=== PATIENT | female | born 1975 | race Two or more races ===

== ENCOUNTER 2019-09-15 13:05 | Inpatient (IN) | payer OTHER ==
[2019-09-15] MEDS ORDERED: ONDANSETRON 4 MG/2 ML VIAL IVPUSH PRN (14:51)
[2019-09-15] MEDS ORDERED: morphine SULFATE/PF 0.5 MG/ML (2cc Syringe - QUVA) ONE (14:56)
[2019-09-15] MEDS ORDERED: PHENYLEPHRINE HCL 10 MG/1 ML SINGLE DOSE VIAL ONE (14:56)
[2019-09-15] MEDS ORDERED: CITRIC ACID/SODIUM CITRATE 30 ML UNIT-DOSE CUP PO ONE (15:03)
--- NOTE | 2019-09-15 15:03 | HP ---
Past Medical History - Admission Chief Complaint: breech for c s History Source: Patient Limitations to Obtaining History: No Limitations - Past Medical History BRANCH ACCOUNT EXECUTIVE: No: Alzheimer's, CVA, Dementia, Migraine, Multiple Sclerosis, Peripheral Neuropathy, Parkinson's, Seizure, Syncope, TIA, Vertigo, Other Cardiovascular: No: AFIB, Aneurysm, Aortic Insufficiency, Aortic Stenosis, CAD, CHF, Deep Vein Thrombosis, HTN, Hyperlipdemia, HI, Mitral Insufficiency, Mitral Stenosis, Murmur, Pulmonary Hypertension, Other Pulmonary: No: Asthma, Bronchitis, Cancer, COPD, O2 Dependent, Pneumonia, Previously Intubated, Pulmonary Embolus, Pulmonary Fibrosis, Sleep Apnea, Other Gastrointestinal: No: Ascites, Cancer, Constipation, Crohn's Disease, Diverticulitis, Diverticulosis, Esophageal Varices, Gastritis, GERD, GI Bleed, Hemorrhoids, Hiatal Hernia, Inflamatory Bowel Disease, Irritable Bowel Disease, Pancreatitis, Peptic Ulcer Disease, Ulcerative Colitis, Other Hepatobiliary: No: Cirrhosis, Cholelithiasis, Cholecystitis, Choledocholithiasis, Hepatitis A, Hepatitis B, Hepatitis C, Other Renal/: No: Renal Failure, Renal Inusuff, BPH, Cancer, Hematuria, Hemodialysis, Neurogenic Bladder, Renal Calculi, UTI, Other Reproductive: No: Ectopic , Endometriosis, Fibroids, PID, Polycystic Ovary Syndrome, Postmenopausal, Other ...Para: 0 ... Weeks Gestation by Dates: 40 ...EDC by Dates: 09/15/19 Heme/Onc: No: Anemia, B12 Deficiency, Bleeding Disorder, Cancer, Current Chemotherapy, Current Radiation Therapy, Hemochromatosis, Hypercoaguable State, Myeloproliferative Synd, Sickle Cell Disease, Sickle Cell Trait, Thrombocytopenia, Other Infectious Disease: No: AIDS, C-Diff, Herpes Zoster, HIV, MRSA, STD's, Tuberculosis, VREF, Other Psych: No: Addictions, Anxiety, Bipolar, Depression, Panic, Psychosis, Schizophrenia, Other Musculoskeletal: No: Bursitis, Chronic low back pain, Hemiparesis, Hemiplegia, O steoarthritis, Paraplegia, Other Rheumatology: No: Fibromyalgia, Gout, Lupus, Rheumatoid Arthritis, Sarcoidosis, Vasculitis, Other ENT: No: Allergic Rhinitis, Sinusitis, Other Endocrine: No: [place]ose's Disease, Palo's Disease, Diabetes Insipidus, Diabetes Mellitus, Hyperparathyroidism, Hyperthyroidism, Hypothyroidism, Ost eopenia, SIADH, Other Dermatology: No: Basal Cell, Cellulitis, Eczema, Melanoma, Psoriasis, Squamous Cell, Other - Past Surgical History Past Surgical History: No: None, AAA Repair, AICD, Amputation, Appendectomy, Arthrosocopy, AV Fistula/Graft, Bariatric Surgery, Breast Biopsy, Bypass, CABG, Carotid Endarterectomy, Cataract Removal, Cholecystectomy, Colectomy, Colonoscopy, Colostomy, Craniotomy, , Cystectomy, Hernia Repair, Hysterectomy, Ileal Conduit, Ileosotomy, Joint Replacement, Kidney Transplant, Laminectomy, Liver Transplant, Mastectomy, Nephrectomy, Oopherectomy, Orchiectomy, Permanent Pacemaker, Prostatectomy, Splenectomy, Stent, Thoracotomy, TURP, Tonsillectomy, Tubal Ligation, Upper Endoscopy, Valve Replace ment, Vasectomy, Vein Stripping/Ligation Hx Myomectomy: No Hx Transabdominal Cerclage: No - Advance Directives Advance Directives: Yes: Living Will - Smoking History Smoking history: Current every day smoker Have you smoked in the past 12 months: No - Alcohol/Substance Use Hx Alcohol Use: No History of Substance Use: reports: None - Social History Usual Living Arrangement: Yes: With Significant Other Do you think of yourself as: Straight/Heterosexual ADL: Independent History of Recent Travel: No Home Medications - Allergies Allergies/Adverse Reactions: Allergies Allergy/AdvReac Type Severity Reaction Status Date / Time ciprofloxacin [From Cipro] Allergy Itching Verified 09/12/19 07:59 pineapple Allergy Itching Verified 09/12/19 07:59 SEAFOOD Allergy Itching Uncoded 09/12/19 07:59 - Home Medications Home Medications: Ambulatory Orders Tablet 1 tab PO DAILY 09/12/19 Family Medical History Family History: Denies Review of Systems - Review of Systems Constitutional: reports: No Symptoms Eyes: reports: No Symptoms HENT: reports: No Symptoms Neck: reports: No Symptoms Cardiovascular: reports: No Symptoms Respiratory: reports: No Symptoms Gastrointestinal: reports: No Symptoms Genitourinary: reports: No Symptoms Breasts: reports: No Symptoms Reported Musculoskeletal: reports: No Symptoms Integumentary: reports: No Symptoms Neurological: reports: No Symptoms Endocrine: reports: No Symptoms Hematology/Lymphatic: reports: No Symptoms Psychiatric: reports: No Symptoms Physical Exam - Maternity Constitutional: Yes: Well Nourished, No Distress, Calm Eyes: Yes: WNL, Conjunctiva Clear, EOM Intact HENT: Yes: WNL, Atraumatic, Normocephalic Neck: Yes: WNL, Supple, Trachea Midline Cardiovascular: Yes: WNL, Regular Rate and Rhythm Breast(s): Yes: WNL - Abdominal Exam/OB Number of Fetuses: Single Presentation: Breech Contractions: Yes Regularity: Irregular Intensity: Mild/Mod Monitor Mode: External Heart Rate Location: [facility] Category: I Accelerations: Uniform Decelerations: None - Vaginal Exam/OB Vaginal Bleeding: No Speculum Exam: No Amniotic Membrane Status: Intact Station: -2 - Physical Exam Musculoskeletal: Yes: WNL Extremities: Yes: WNL Edema: Yes Edema: LUE: 1+, RUE: 1+, LLE: 1+, RLE: 1+ Integumentary: Yes: WNL Deep Tendon Reflex Grade: Normal +2 ...Motor Strength: WNL Psychiatric: Yes: WNL, Alert, Oriented Hemorrhage Risk Assessment - Risk Factors Medium Risk Factors: Yes: None High Risk Factors: Yes: None Risk Score: 1 Risk Level: Medium Risk Assessment/Plan hermann merritt maguire
[2019-09-15] MEDS ORDERED: ePHEDrine SULFATE 50 MG/1 ML AMPULE ONE (15:25)
[2019-09-15] MEDS ORDERED: MIDAZOLAM HCL 2 MG/2 ML SINGLE DOSE VIAL ONE (15:38)
[2019-09-15] MEDS: OXYTOCIN 20 UNITS in 0.9% NS 20 UNIT/1,000 ML INFUS.BAG IV SCH (16:05)
[2019-09-15] MEDS ORDERED: OXYTOCIN 20 UNITS in 0.9% NS 20 UNIT/1,000 ML INFUS.BAG IV ONE (16:09)
[2019-09-15] MEDS ORDERED: LABETALOL HCL 5 MG/1 ML (100MG/20 ML VIAL) IVPUSH ONE ×2 (16:21→19:00)
[2019-09-15] MEDS ORDERED: oxyCODONE HCL 5 MG TABLET PO PRN ×2 (16:22)
[2019-09-15] MEDS ORDERED: IBUPROFEN 800 MG/8 ML IJ IVPB PRN (16:22)
[2019-09-15] MEDS ORDERED: SENNOSIDES/DOCUSATE COMBO (SENNA PLUS) TABLET (UD) PO PRN (16:22)
[2019-09-15] MEDS ORDERED: ACETAMINOPHEN 325 MG TABLET (FP) PO PRN (16:22)
[2019-09-15] MEDS ORDERED: METHYLERGONOVINE MALEATE 0.2 MG/1 ML AMP IM PRN (16:22)
[2019-09-15] MEDS ORDERED: IBUPROFEN 600 MG TABLET (FP) PO PRN (16:22)
--- NOTE | 2019-09-15 16:37 | OP ---
Operative Note - Note: Operative Date: 09/15/19 Pre-Operative Diagnosis: breech, borderline htn Operation: primary lt c s Findings: incomlptet single footling breech Post-Operative Diagnosis: Same as Pre-op Surgeon: Walter Lindsay Staff Respiratory Therapist: Per Bonner Anesthesiologist/RD PROJECT MANAGER: Jose Liao Anesthesia: Spinal Estimated Blood Loss (mls): 800 (multiple fibroids, single footling, turning into juarez breech for delivery ) Operative Report Dictated: Yes
[2019-09-15] MEDS: NIFEdipine E.R. 30 MG TABLET PO SCH (16:50)
[2019-09-15 17:15] VITALS: BMI 27.3
[2019-09-15] MEDS ORDERED: LABETALOL HCL 5 MG/1 ML (100MG/20 ML VIAL) ONE (19:05)
--- NOTE | 2019-09-15 20:22 | OP ---
DATE OF OPERATION: 09/15/2019 PREOPERATIVE DIAGNOSIS: Breech presentation, borderline high blood pressure, and advanced maternal age, and post dates. PROCEDURE: Primary low transverse section. SURGEON: Walter Lindsay MD. WASTE SALVAGER: BARBARA Ngo. POSTOPERATIVE DIAGNOSIS: Incomplete single footling breech and the fibroid uterus. ANESTHESIOLOGIST: Jose Liao MD. ANESTHESIA: Spinal INDICATION: This is a 44-year-old female patient 40 weeks and 1 day , borderline high blood pressure, and also borderline gestational diabetic, and the breech presentation since about 32 weeks, and the patient advised to have a baby earlier, however patient declined, patient wanted to wait until her due date, and the patient also finally came in 2-3 days ago was scheduled for , however patient did not do a Coronavirus test, and the case got cancelled, so patient finally had case pushed down to today to be done, so patient was taken to the OR. Patient had a borderline diabetic, borderline high blood pressure, and so patient strongly with advanced maternal age of [age] years old advised to be a earlier, but patient declined. So patient was finally agreed. DESCRIPTION OF PROCEDURE: Patient was taken to the OR and placed on operating table in supine position after spinal anesthesia was obtained. The patient's abdomen and pelvis were prepped and draped in the usual sterile manner. Pfannenstiel incision was made. The incision was made through skin, subcutaneous tissue, until the fascia was nicked in the midline. The fascia was extended bilaterally. Intraperitoneal cavity was entered, no bladder flap was now created. Low transverse section of uterus was entered, baby was single footling breech, and by pushing the leg inside the cavity, then we delivered baby, tried to get the double footling breech to be delivered, but the other leg would not come out, so I turned the baby to juarez breech presentation and delivered baby from juarez breech presentation, and the baby was handed over to the helper/driver after umbilical cord was doubly clamped and cut. Placenta was removed. Uterus was closed in single layer. Baby was handed over to helper/driver after umbilical cord clamped and cut. Placenta was removed. Uterus was closed in a single layer. First layer interlocking Vicryl suture, good hemostasis, and both gutters clean. Both ovaries, fallopian tubes, uterus were within normal limits, no complications. Patient tolerated procedure well draining clear urine, and patient has multiple fibroid uterus, largest one is about intramural 5 x 4 cm in the left lower segment area posterior from , and other than that no complications, and the patient tolerated procedure well, draining clear urine. Blood loss was about 100 mL. Peritoneum was closed. Fascia was closed. Skin was closed. Transferred to recovery room in stable condition. MD SONIA WHEELER/[id number]
[2019-09-15] MEDS: LABETALOL HCL 200 MG TABLET (FP) PO SCH (21:06)
[2019-09-16] MEDS: NIFEdipine E.R. 30 MG TABLET PO SCH (09:35)
[2019-09-16] MEDS: LABETALOL HCL 200 MG TABLET (FP) PO SCH ×2 (09:36→21:30)
[2019-09-16] MEDS ORDERED: DIPHTH,PERTUSS(ACELL),TET 0.5 ML DISP.SYRIN IM ONE (10:00)
[2019-09-16] MEDS ORDERED: NIFEdipine E.R. 30 MG TABLET PO SCH (10:00)
[2019-09-16 13:51] LABS: BASO % 0.1 % (0-2.0); EOS % 0.1 % (0-4.5); HEMATOCRIT 29.1 % (32.4-45.2); HEMOGLOBIN 9.4 GM/dL (10.7-15.3); LYMPH % 6.1 % (8-40); MCH 28.8 pg (25.7-33.7); MCHC 32.3 g/dl (32.0-36.0); MEAN CELL VOLUME 89.1 fl (80-96); MEAN PLT VOLUME 10.1 fl (7.5-11.1); MONO % 3.9 % (3.8-10.2); NEUT % 89.8 % (42.8-82.8); PLATELET COUNT 128 K/MM3 (134-434); RBC 3.26 M/mm3 (3.60-5.2); RDW 13.9 % (11.6-15.6); WHITE BLOOD COUNT 9.4 K/mm3 (4.0-10.0)
--- NOTE | 2019-09-16 15:44 | PN ---
Progress Note (short form) - Note Progress Note: Anesthesia Pain Pt seen and examined Alert and awake VSS Vital Signs Temperature 98.2 F 09/16/19 13:00 Pulse Rate 64 09/16/19 13:00 Respiratory Rate 09/16/19 14:00 Blood Pressure 152/89 09/16/19 13:00 O2 Sat by Pulse Oximetry (%) 97 09/16/19 09:34 CBC, BMP 09/16/19 11:37 A/P:s/p c section Doing well post op Continue current care Jose Liao MD
--- NOTE | 2019-09-16 15:46 | PN ---
Post Progress Note Post Day: 1 Type of Delivery: Primary C/S Vital Signs: Vital Signs Temperature 98.2 F 09/16/19 13:00 Pulse Rate 64 09/16/19 13:00 Respiratory Rate 20 09/16/19 14:00 Blood Pressure 152/89 09/16/19 13:00 O2 Sat by Pulse Oximetry (%) 97 09/16/19 09:34 Breast Exam: Yes: Soft Uterus: Yes: Fundus Firm, Fundus below umbilicus, Non-tender Incision: Yes: Dressing dry and intact, Sutures intact Abdomen/GI: Yes: Abdomen soft, Passing flatus, Tolerating PO Lochia: Yes: Serosa Lochia, amount: Small Extremities: Yes: Calves non-tender Perineum: Yes: Intact Activity: Ambulating (doing well, bp well controlled, pt prefers to go home day 3) - Labs Labs: CBC WBC 9.4 K/mm3 (4.0-10.0) 09/16/19 11:37 RBC 3.26 M/mm3 (3.60-5.2) L 09/16/19 11:37 Hgb 9.4 GM/dL (10.7-15.3) L 09/16/19 11:37 Hct 29.1 % (32.4-45.2) L D 09/16/19 11:37 MCV 89.1 fl (80-96) 09/16/19 11:37 MCH 28.8 pg (25.7-33.7) 09/16/19 11:37 MCHC 32.3 g/dl (32.0-36.0) 09/16/19 11:37 RDW 13.9 % (11.6-15.6) 09/16/19 11:37 Plt Count 128 K/MM3 (134-434) L D 09/16/19 11:37 MPV 10.1 fl (7.5-11.1) 09/16/19 11:37 Absolute Neuts (auto) 8.5 K/mm3 (1.5-8.0) H 09/16/19 11:37 Neutrophils % 89.8 % (42.8-82.8) H 09/16/19 11:37 Lymphocytes % 6.1 % (8-40) L 09/16/19 11:37 Monocytes % 3.9 % (3.8-10.2) 09/16/19 11:37 Eosinophils % 0.1 % (0-4.5) 09/16/19 11:37 Basophils % 0.1 % (0-2.0) 09/16/19 11:37 Nucleated RBC % 0 % (0-0) 09/16/19 11:37
--- NOTE | 2019-09-16 15:49 | DS ---
Physical Exam-REHAB DIRECTOR Vital Signs: Vital Signs Temperature 98.2 F 09/16/19 13:00 Pulse Rate 64 09/16/19 13:00 Respiratory Rate 20 09/16/19 14:00 Blood Pressure 152/89 09/16/19 13:00 O2 Sat by Pulse Oximetry (%) 97 09/16/19 09:34 Constitutional: Yes: Well Nourished, No Distress, Calm Eyes: Yes: WNL, Conjunctiva Clear, EOM Intact HENT: Yes: WNL, Atraumatic, Normocephalic Neck: Yes: WNL, Supple, Trachea Midline Cardiovascular: Yes: WNL, Regular Rate and Rhythm Respiratory: Yes: WNL, Regular, CTA Bilaterally Gastrointestinal: Yes: WNL, Normal Bowel Sounds, Soft ...Rectal Exam: Yes: WNL Renal/: Yes: WNL Pelvis: Yes: WNL External Genitalia: Yes: Normal Internal Exam Deferred: Yes Vaginal Exam: Yes: Normal Cervix: Yes: Normal Uterus: Yes: Normal Adnexa: Normal: Bilateral ....Post : Yes: Uterus firm, Uterus non-tender Breast(s): Yes: WNL Musculoskeletal: Yes: WNL Extremities: Yes: WNL Edema: Yes Integumentary: Yes: WNL Wound/Incision: Yes: Clean/Dry, Well Approximated Neurological: Yes: WNL, Alert, Oriented ...Motor Strength: WNL Psychiatric: Yes: WNL, Alert, Oriented Labs: CBC, BMP 09/16/19 11:37 Delivery - Delivery Section: Primary Type of Anesthesia: Spinal Episiotomy/Laceration: None EBL (cc): 800 Delivery, Single - Stages of Labor Date of Delivery: 09/15/19 Time of Delivery: 15:29 Time Placenta Delivered: 15:30 - Condition of Ordering Box Operator/Back Roll Lathe Operator Present: Yes Name: Kelly Guerrero Infant Gender: Male Weight: 3.487 kg Total Hours ROM (Hrs/Mins): 0hrs 2min - 1 Minute Total Score: 7 5 Minutes Total Score: 9 - Feeding Plan Initial Plan: Exclusive throughout hospitalization Discharge Summary Problems reviewed: Yes Procedures: Principal: primary lt c s Other Procedures: none Hospital Course: uneventful Condition: Good - Instructions Diet, Activity, Other Instructions: Physical activity Resume your normal everyday activity as tolerated no heavy lifting or exercise until seen by your surgeon. You may walk unlimited mike of and climb stairs. You may resume driving the car when you feel safe and comfortable behind the wheel. No sexual activity as instructed. Wound care If you have a bandage, leave it on, and keep dry for 48-72 hours. After that time discard the outer bandage. If they are tapes on the skin under the out of bandage leave them in place. They will peel off in the next 7 to 10 days. Do Not Peel them off. You may shower the day after surgery. If there are tapes present on the skin, you may shower over them. Diet There are no dietary restrictions. Eat healthy, high-fiber foods. Drink 6 to 8 glasses of liquid each day. This will assist in keeping your bowels are regular. Pain management You may take Tylenol or acetaminophen or Ibuprofen (for example, Motrin, Advil etc.) from my pain prescription medication is ordered should be taken as prescribed for moderate to severe pain. Call MD for any of the following:call dr galeas for 2 weeks appointment Severe pain not relieved by medication Fever of 101 or higher Excessive bleeding or drainage on dressing Inability to urinate Disposition: HOME - Home Medications Comprehensive Discharge Medication List: Ambulatory Orders Tablet 1 tab PO DAILY 09/12/19 Prescription Drug Monitoring Program (I-STOP) results: I-STOP reviewed and no issues identified
[2019-09-16] MEDS ORDERED: BISACODYL 10 MG SUPP.RECT RC PRN (16:22)
[2019-09-16] MEDS: OXYTOCIN 20 UNITS in 0.9% NS 20 UNIT/1,000 ML INFUS.BAG IV SCH (19:30)
[2019-09-16] MEDS: ACETAMINOPHEN 325 MG TABLET (FP) PO PRN (21:32)
[2019-09-16] MEDS: SIMETHICONE 80 MG TAB.CHEW (FP) PO PRN (21:34)
[2019-09-17] MEDS: IBUPROFEN 600 MG TABLET (FP) PO PRN ×2 (09:16→17:14)
[2019-09-17] MEDS: ACETAMINOPHEN 325 MG TABLET (FP) PO PRN ×2 (09:16→17:15)
[2019-09-17] MEDS: NIFEdipine E.R. 30 MG TABLET PO SCH (09:17)
[2019-09-17] MEDS: LABETALOL HCL 200 MG TABLET (FP) PO SCH ×2 (09:17→21:54)
[2019-09-17] MEDS: SIMETHICONE 80 MG TAB.CHEW (FP) PO PRN (09:18)
[2019-09-17] MEDS ORDERED: LABETALOL HCL 200 MG TABLET (FP) PO ONE (17:30)
[2019-09-18] MEDS: NIFEdipine E.R. 30 MG TABLET PO SCH (09:22)
[2019-09-18] MEDS: LABETALOL HCL 200 MG TABLET (FP) PO SCH (09:23)
[2019-09-18] MEDS: ACETAMINOPHEN 325 MG TABLET (FP) PO PRN (09:25)
[2019-09-18] MEDS: IBUPROFEN 600 MG TABLET (FP) PO PRN (09:26)
[2019-09-18] MEDS: SIMETHICONE 80 MG TAB.CHEW (FP) PO PRN (09:27)
[2019-09-18 11:16] VITALS: BP 153/91; PULSE 85; TEMP 98.2
--- NOTE | 2019-09-22 16:47 | PATH ---
Surgical Pathology Report Patient Name: JESUS LOPEZ Med. Rec. #: [id number] /Age/Gender: 1975 (Age: 44) / F Account: [id number] Location: [facility] OBS/ENTRANCE GUARD Taken: 09/15/2019 Received: 09/18/2019 Reported: 09/22/2019 Physicians: Walter Lindsay MD Specimen(s) Received PLACENTA Clinical History , breech presentation Final Diagnosis PLACENTA: THIRD TRIMESTER PLACENTA. TRIVASCULAR CORD. MEMBRANES WITH NO DIAGNOSTIC ABNORMALITIES. Electronically Signed Henrietta Hu M.D. Gross Description The specimen is received fresh labeled placenta and is a 497 gram, 22.5 x 16.0 x 2.7 cm. placenta with attached membranes and umbilical cord. The attached membranes are alford, translucent with focal opacities and insert marginally. The umbilical cord measures 27 cm. in length and averages 1 cm. in diameter. The cord inserts at the margin. No true knots or strictures are identified. Cut surface of the umbilical cord reveals 3 vessels. The surface is ceja-blue with minimal fibrin deposition and appropriate caliber vessels. The maternal surface is red-brown with focal defects. Sectioning reveals red-brown, spongy parenchyma. No lesions are identified. Field Property Loss Specialist sections are submitted in three cassettes as follows: 1- membrane rolls and umbilical cord; 2-3- full thickness sections of placenta. 09/21/2019 [facility]09/21/2019
== END 2019-09-18 14:40 | disposition home or self-care (01) | DRG 540 ==
LOC: JLDR 13:05 → J3W 18:00
PROVIDERS: ADMIT Obstetrics & Gynecology; ATTEND Obstetrics & Gynecology
PROC: 10D00Z1 Extraction of Products of Conception, Low, Open Approach (ICD-10-PCS; principal; 2019-09-15)
DX: O48.0 Post-term pregnancy (principal); O16.4 Unspecified maternal hypertension, complicating childbirth; O34.13 Maternal care for benign tumor of corpus uteri, third trimester; O32.8XX0 Maternal care for other malpresentation of fetus, not applicable or unspecified; Z3A.40 40 weeks gestation of pregnancy; Z37.0 Single live birth
CPT/HCPCS: 36415; 85025; 88307-TC; 90715